=== PATIENT | male | born 1945 | race Caucasian/White ===

== ENCOUNTER → 2022-03-24 | Outpatient (CLI) | payer MEDICARE, BC ==
[~2022-03-24] MED LIST: CYCLOBENZAPRINE10 MG PO; LODINE CAP 300300 MG PO; PROTONIX 40 MG40 M1 PO
== END ==
LOC: KOH-I 12:52
DX: I73.9 Peripheral vascular disease, unspecified (principal); M79.604 Pain in right leg
CPT/HCPCS: 93922; 93925; 93970